=== PATIENT | male | born 1985 | race Caucasian/White ===

== ENCOUNTER 2020-05-15 16:23 | Emergency (ER) | payer OTHER, SELFPAY ==
[2020-05-15 17:14] VITALS: BP 141/91; PULSE 72; RESP 19; TEMP 37; O2SAT 100; BMI 21.7
[2020-05-15 17:28] VITALS: BP 141/91; PULSE 72; RESP 19; TEMP 37; O2SAT 100
--- NOTE | 2020-05-18 10:14 | HMH.EDUTC ---
[facility] [place] Impression: COVID-19 ruled out by laboratory testing Disposition: Home, Self-Care Condition on Discharge: Good Instructions: Preventing the Spread of Coronavirus Discharge Instructions Additional Instructions: Drink plenty of fluids. Take tylenol orfor pain or fever. Follow up with your regular doctor. GO TO THE ER FOR ANY WORSENING SYMPTOMS FOLLOW THE DIRECTIONS ON THE COVID-19 HAND OUT THAT WE GAVE YOU REGARDING SELF-ISOLATION UNTIL YOU KNOW YOUR COVID-19 RESULTS Referrals: PCP,No [Primary Care Provider] - Medical Decision Making - Medical Records Medical records reviewed: No: I reviewed the patient's medical records. - Yosef Inquiry Pt receiving controlled substance: No Vital Signs: 05/15/20 17:14 05/15/20 17:28 Temperature 98.6 F 98.6 F Temperature Source Oral Pulse Rate 72 Pulse Rate [Right Brachial] 72 Respiratory Rate 19 19 Blood Pressure 141/91 H Blood Pressure [Right Arm] 141/91 H Blood Pressure Mean [Right Arm] 107 Blood Pressure Source [Right Arm] Automatic Cuff Blood Pressure Position [Right Arm] Sitting 02 Sat by Pulse Oximetry 100 Oxygen Delivery Method Room [place] [facility] [place] General Stated complaint: covid test Time Seen by Provider: 05/15/20 17:15 Mode of Arrival: Ambulatory Source of Information: Patient Limitations: No Limitations Description of Symptoms (Recalled from Triage Doc. by RN): REQUESTING COVID TEST D/T EXPOSURE; DENIES SYMPTOMS HEENT Symptoms (Recalled from RN notes): No Resp Symptoms (Recalled from RN notes): No Skin Symptoms (Recalled from RN notes): No MS Symptoms (Recalled from RN notes): No Functional Status (Recalled from RN notes): WNL - History of Present Illness Provider Complaint: His grandfather tested + for covid-19 earlier today. His parents would like for him to be tested. They deny that the child has had any symptoms - Related Data Home Medications Medication Instructions Recorded Confirmed Buprenorphine HCl/Naloxone HCl 5.7 mg PO BID 01/20/18 06/24/18 [Zubsolv 5.7-1.4 mg Tablet Sl] Previous Rx's Medication Instructions Recorded cephALEXin [Keflex 500mg Cap] 500 mg PO TID #30 cap 06/24/18 predniSONE [Prednisone 20mg 20 mg PO BID #10 tab 06/24/18 Tab] Allergies Allergy/AdvReac Type Severity Reaction Status Date / Time penicillin G [PENICILLIN G] Allergy Mild Verified 06/24/18 21:39 - Worker's Comp Is this a Worker's Comp case?: No [facility] History - Hepatitis A Screen Drug use history?: No High risk sexual behaviors?: No History of sexually transmitted infection?: No Currently employed?: No Childcare worker?: No Do you have indoor plumbing?: Yes Do you have electricity?: Yes Attestation statement:: This patient has been screened for Hepatitis A risk factors. Medical History: Denies:: Diabetes Mellitus Type 1, Diabetes Mellitus Type 2, Internal Pacemaker, Lung Disease, Seizures Other Medical History: Reports: Other (suboxone use) Other Surgeries: No: Pacemaker - Social History Smoking Status: Never smoker Tobacco Type: smokeless tobacco # Packs/Day (cigarettes): 0 Alcohol Intake: never Substance Use Type: unknown Occupational Status: other ROS Obtained: Yes All systems reviewed & no additional complaints - Constitutional Constitutional: Reports system reviewed and no additional complaints, except as docu, Denies chills, Denies fever(s) - Eyes Eyes: Reports system reviewed and no additional complaints, except as docu, Denies eye discharge - ENT Ears, Nose, Mouth, and Throat: Reports system reviewed and no additional complaints, except as docu, Denies dizziness, Denies otalgia, Denies sore throat - Cardiovascular Cardiovascular: Denies chest pain - Respiratory Respiratory: No chest congestion, No cough Physical Exam - General General appearance: alert, in no apparent distress - Head Head exam: atraumatic, normocephalic, normal
== END 2020-05-15 17:30 | disposition home or self-care (01) ==
PROVIDERS: Emergency Provider Nurse Practitioner Family
DX: U07.1 COVID-19 (principal)
CPT/HCPCS: 99201; U0003

== ENCOUNTER 2020-05-23 17:17 | Emergency (ER) | payer OTHER, SELFPAY ==
[2020-05-23 17:29] VITALS: BP 132/84; PULSE 84; RESP 14; TEMP 36.9; O2SAT 96; BMI 23.7
--- NOTE | 2020-05-23 17:35 | HMH.EDUTC ---
[facility] [place]ression: COVID-19 Disposition: Home, Self-Care Condition on Discharge: Good Instructions: Preventing the Spread of Coronavirus Discharge Instructions Additional Instructions: Follow up with your primary care physician. GO TO THE ER FOR ANY WORSENING SYMPTOMS OR CONCERNS Prescriptions: Azithromycin [Z-Oscar 250mg Tab*] 250 mg PO UD DOSE PK #6 tab Transmission Status: [facility] Referrals: PCP,No [Primary Care Provider] - Time of Disposition: 17:39 Medical Decision Making - Medical Records Medical records reviewed: No: I reviewed the patient's medical records. - Yosef Inquiry Pt receiving controlled substance: No Vital Signs: 05/23/20 17:29 05/23/20 17:45 Temperature 98.4 F 98.4 F Temperature Source Oral Oral Pulse Rate 84 Pulse Rate [Radial] 84 Respiratory Rate 14 14 Blood Pressure 132/84 Blood Pressure [Right Arm] 132/84 Blood Pressure Mean [Right Arm] 100 Blood Pressure Source Automatic Cuff Blood Pressure Source [Right Arm] Automatic Cuff Blood Pressure Position Sitting Blood Pressure Position [Right Arm] Sitting 02 Sat by Pulse Oximetry 96 Oxygen Delivery Method Room Air Room Air Orders (Tests/Meds): ORDERS Category Date Time Status Covid-19 Nasal PCR Sendout Gaurav Routine Lab 05/23/20 17:20 Received [facility] [place] - General Stated complaint: wants COVID test Time Seen by Provider: 05/23/20 17:35 Mode of Arrival: Ambulatory Source of Information: Patient Limitations: No Limitations Description of Symptoms (Recalled from Triage Doc. by RN): Tested positive for COVID on 05/14/20. States his place of employment is requiring two negative tests before returning to work. Here for covid test. HEENT Symptoms (Recalled from RN notes): No Resp Symptoms (Recalled from RN notes): No Skin Symptoms (Recalled from RN notes): No MS Symptoms (Recalled from RN notes): No Functional Status (Recalled from RN notes): wnl - History of Present Illness Provider Complaint: He is here at the request of his employer to have a covid test. He has recently tested positive for covid. - Related Data Home Medications Medication Instructions Recorded Confirmed Buprenorphine HCl/Naloxone HCl 5.7 mg PO BID 01/20/18 06/24/18 [Zubsolv 5.7-1.4 mg Tablet Sl] Previous Rx's Medication Instructions Recorded cephALEXin [Keflex 500mg Cap] 500 mg PO TID #30 cap 06/24/18 predniSONE [Prednisone 20mg 20 mg PO BID #10 tab 06/24/18 Tab] Azithromycin [Z-Oscar 250mg Tab*] 250 mg PO UD DOSE PK #6 tab 05/23/20 Allergies Allergy/AdvReac Type Severity Reaction Status Date / Time penicillin G [PENICILLIN G] Allergy Mild Verified 06/24/18 21:39 - Worker's Comp Is this a Worker's Comp case?: No H History - Hepatitis A Screen Drug use history?: Yes High risk sexual behaviors?: No History of sexually transmitted infection?: No Currently employed?: No Childcare worker?: No Do you have indoor plumbing?: Yes Do you have electricity?: Yes Attestation statement:: This patient has been screened for Hepatitis A risk factors. I have reviewed the patient's past medical history: Yes Medical History: Denies:: Diabetes Mellitus Type 1, Diabetes Mellitus Type 2, Internal Pacemaker, Lung Disease, Seizures Other Medical History: Reports: Other (suboxone use) Other Surgeries: No: Pacemaker - Social History Smoking Status: Current every day smoker Tobacco Type: smokeless tobacco # Packs/Day (cigarettes): 0 Alcohol Intake: never Substance Use Type: unknown Occupational Status: employed ROS Obtained: Yes All systems reviewed & no additional complaints - Constitutional Constitutional: Reports system reviewed and no additional complaints, except as docu - Eyes Eyes: Reports system reviewed and no additional complaints, except as docu - ENT Ears, Nose, Mouth, and Throat: Reports system reviewed and no additional complaints, except a
[2020-05-23 17:45] VITALS: BP 132/84; PULSE 84; RESP 14; TEMP 36.9; O2SAT 96
[2020-05-24 11:39] LABS: Adenovirus,PCR Not Detected (NotDetected); Bordetella Pertussis Not Detected (NotDetected); Chlamydophila Pneumoniae, PCR Not Detected (NotDetected); Coronavirus 19, PCR Not Detected (NotDetected); Coronavirus 229E Not Detected (NotDetected); Coronavirus NL63 Not Detected (NotDetected); Coronavirus OC43 Not Detected (NotDetected); Coronovirus HKU1,PCR Not Detected (NotDetected); Human Metapneumovirus Not Detected (NotDetected); Influenza A, PCR Not Detected (NotDetected); Influenza AH1, 2009 Not Detected (NotDetected); Influenza AH1, PCR Not Detected (NotDetected); Influenza AH3,PCR Not Detected (NotDetected); Influenza B, PCR Not Detected (NotDetected); Mycoplasma Pneumoniae, PCR Not Detected (NotDetected); Parainfluenza 1, PCR Not Detected (NotDetected); Parainfluenza 2, PCR Not Detected (NotDetected); Parainfluenza 3, PCR Not Detected (NotDetected); Parainfluenza 4, PCR Not Detected (NotDetected); Respiratory Syncytial Virus Not Detected (NotDetected); Rhinovirus/Enterovirus Not Detected (NotDetected)
== END 2020-05-23 17:46 | disposition home or self-care (01) ==
PROVIDERS: Emergency Provider Nurse Practitioner Family
DX: Z20.828 Contact with and (suspected) exposure to other viral communicable diseases (principal); F17.290 Nicotine dependence, other tobacco product, uncomplicated
CPT/HCPCS: 87581; 87633; 87798; 99201; U0003; U0004

== ENCOUNTER 2020-05-27 14:41 | Emergency (ER) | payer OTHER, SELFPAY ==
--- NOTE | 2020-05-27 15:19 | HMH.EDUTC ---
[facility] [place] Clinical Impression: COVID-19 Disposition: Home, Self-Care Condition on Discharge: Good Instructions: Preventing the Spread of Coronavirus Discharge Instructions Referrals: PCP,No [Primary Care Provider] - Time of Disposition: 15:23 Medical Decision Making - Medical Records Medical records reviewed: Yes: I reviewed the patient's medical records. - Yosef Inquiry Pt receiving controlled substance: No Orders (Tests/Meds): ORDERS Category Date Time Status Covid-19 Nasal PCR ([facility]) Routine Lab 05/27/20 15:00 Received [facility] [place] HPI - General Stated complaint: wants 3rd covid test Time Seen by Provider: 05/27/20 15:19 - History of Present Illness Provider Complaint: Patient tested positive for COVID19 on 05/14/20. He needs a 2nd negative test to return to work. Had his first negative test 05/23/20. Onset (ago): day(s) (12) Relieving factors: none Exacerbating factors: none - Related Data Home Medications Medication Instructions Recorded Confirmed Buprenorphine HCl/Naloxone HCl 5.7 mg PO BID 01/20/18 06/24/18 [Zubsolv 5.7-1.4 mg Tablet Sl] Previous Rx's Medication Instructions Recorded cephALEXin [Keflex 500mg Cap] 500 mg PO TID #30 cap 06/24/18 predniSONE [Prednisone 20mg 20 mg PO BID #10 tab 06/24/18 Tab] Azithromycin [Z-Oscar 250mg Tab*] 250 mg PO UD DOSE PK #6 tab 05/23/20 Allergies Allergy/AdvReac Type Severity Reaction Status Date / Time penicillin G [PENICILLIN G] Allergy Mild Verified 06/24/18 21:39 [facility] History - Hepatitis A Screen Attestation statement:: This patient has been screened for Hepatitis A risk factors. I have reviewed the patient's past medical history: Yes Medical History: Denies:: Diabetes Mellitus Type 1, Diabetes Mellitus Type 2, Internal Pacemaker, Lung Disease, Seizures Other Medical History: Reports: Other (suboxone use) Other Surgeries: No: Pacemaker - Social History Smoking Status: Current every day smoker Tobacco Type: smokeless tobacco # Packs/Day (cigarettes): 0 Alcohol Intake: never Substance Use Type: unknown Occupational Status: employed ROS Obtained: Yes All systems reviewed & no additional complaints Physical Exam - General General appearance: alert, in no apparent distress - Head Head exam: atraumatic, normocephalic, normal inspection - Eye Eye exam: Present: normal appearance, PERRL, EOMI - ENT ENT exam: Present: normal exam, normal oropharynx, mucous membranes moist, TM's normal bilaterally, normal external ear exam - Neck Neck exam: Present: normal inspection, full ROM, trachea midline. Absent: meningismus, lymphadenopathy - Chest Chest inspection: Present: normal inspection, symmetric chest wall rise. Absent: tenderness - Respiratory Respiratory exam: Present: normal lung sounds bilaterally. Absent: respiratory distress - Cardiovascular Cardiovascular exam: Present: regular rate, normal rhythm. Absent: JVD - Abdominal Exam Abdominal exam: Present: soft, normal bowel sounds. Absent: distention, tenderness, guarding - Extremities Exam Extremities exam: Present: normal inspection, full ROM, normal capillary refill. Absent: calf tenderness - Back Exam Back exam: Present: normal inspection. Absent: tenderness - Neurological Exam Neurological exam: Present: alert, oriented X3 - Psychiatric Psychiatric exam: Present: normal affect, normal mood - Skin Skin exam: Present: warm, dry, intact, normal color - Lymphatic Lymphatic Findings: no adenopathy
[2020-05-27 15:23] VITALS: BP 149/81; PULSE 87; RESP 18; TEMP 37; O2SAT 99
[2020-05-27 15:25] VITALS: BP 149/81; PULSE 87; RESP 18; TEMP 37; O2SAT 99; BMI 23.7
--- NOTE | 2020-05-27 20:08 | PC.NURSE ---
Pt notified of positive covid test at this time
== END 2020-05-27 15:25 | disposition home or self-care (01) ==
PROVIDERS: Emergency Provider Physician Assistant
DX: U07.1 COVID-19 (principal)
CPT/HCPCS: 99201; U0003

== ENCOUNTER 2020-06-03 19:06 | Emergency (ER) | payer OTHER, SELFPAY ==
[2020-06-03 19:18] VITALS: BP 145/81; PULSE 84; RESP 17; TEMP 37; O2SAT 98; BMI 23.7
--- NOTE | 2020-06-03 19:31 | HMH.EDUTC ---
[facility] [place] Clinical Impression: COVID-19 Disposition: Home, Self-Care Condition on Discharge: Good Instructions: Preventing the Spread of Coronavirus Discharge Instructions Additional Instructions: Drink plenty of fluids. Take tylenol for pain or fever. Follow up with your regular doctor. GO TO THE ER FOR ANY WORSENING SYMPTOMS Referrals: PCP,No [Primary Care Provider] - Time of Disposition: 19:34 Medical Decision Making - Medical Records Medical records reviewed: No: I reviewed the patient's medical records. - Yosef Inquiry Pt receiving controlled substance: No Vital Signs: 06/03/20 19:18 06/03/20 19:44 Temperature 98.6 F 98.6 F Temperature Source Oral Oral Pulse Rate 84 Pulse Rate [Radial] 84 Respiratory Rate 17 17 Blood Pressure 145/81 H Blood Pressure [Right Arm] 145/81 H Blood Pressure Mean [Right Arm] 102 Blood Pressure Source Automatic Cuff Blood Pressure Source [Right Arm] Automatic Cuff Blood Pressure Position Sitting Blood Pressure Position [Right Arm] Sitting 02 Sat by Pulse Oximetry 98 Oxygen Delivery Method Room Air Room Air Orders (Tests/Meds): ORDERS Category Date Time Status Covid-19 Nasal PCR ([facility]) Routine Lab 06/03/20 19:10 Received [facility] [place] HPI - General Stated complaint: covid test Time Seen by Provider: 06/03/20 19:31 Mode of Arrival: Ambulatory Source of Information: Patient Limitations: No Limitations Description of Symptoms (Recalled from Triage Doc. by RN): covid test HEENT Symptoms (Recalled from RN notes): No Resp Symptoms (Recalled from RN notes): No Skin Symptoms (Recalled from RN notes): No MS Symptoms (Recalled from RN notes): No Functional Status (Recalled from RN notes): wnl - History of Present Illness Provider Complaint: He is here for a covid test. He needs a negative test to be allowed to go back to work. - Related Data Home Medications Medication Instructions Recorded Confirmed Buprenorphine HCl/Naloxone HCl 5.7 mg PO BID 01/20/18 06/24/18 [Zubsolv 5.7-1.4 mg Tablet Sl] Previous Rx's Medication Instructions Recorded cephALEXin [Keflex 500mg Cap] 500 mg PO TID #30 cap 06/24/18 predniSONE [Prednisone 20mg 20 mg PO BID #10 tab 06/24/18 Tab] Azithromycin [Z-Oscar 250mg Tab*] 250 mg PO UD DOSE PK #6 tab 05/23/20 Allergies Allergy/AdvReac Type Severity Reaction Status Date / Time penicillin G [PENICILLIN G] Allergy Mild Verified 06/24/18 21:39 - Worker's Comp Is this a Worker's Comp case?: No [facility] History - Hepatitis A Screen Drug use history?: No High risk sexual behaviors?: No History of sexually transmitted infection?: No Currently employed?: No Childcare worker?: No Do you have indoor plumbing?: Yes Do you have electricity?: Yes Attestation statement:: This patient has been screened for Hepatitis A risk factors. I have reviewed the patient's past medical history: Yes Medical History: Denies:: Diabetes Mellitus Type 1, Diabetes Mellitus Type 2, Internal Pacemaker, Lung Disease, Seizures Other Medical History: Reports: Other (suboxone use) Other Surgeries: No: Pacemaker - Social History Smoking Status: Current every day smoker Tobacco Type: smokeless tobacco # Packs/Day (cigarettes): 0 Alcohol Intake: never Substance Use Type: unknown Occupational Status: employed Housing: house ROS Obtained: Yes All systems reviewed & no additional complaints - Constitutional Constitutional: Reports system reviewed and no additional complaints, except as docu - Eyes Eyes: Reports system reviewed and no additional complaints, except as docu - ENT Ears, Nose, Mouth, and Throat: Reports system reviewed and no additional complaints, except as docu - Cardiovascular Cardiovascular: Reports system reviewed and no additional complaints, except as docu - Respiratory Respiratory: Yes system reviewed and no additional complaints, except as docu - Gastrointestinal Gastrointestin
[2020-06-03 19:44] VITALS: BP 145/81; PULSE 84; RESP 17; TEMP 37; O2SAT 98
== END 2020-06-03 19:45 | disposition home or self-care (01) ==
PROVIDERS: Emergency Provider Nurse Practitioner Family
DX: U07.1 COVID-19 (principal); F17.290 Nicotine dependence, other tobacco product, uncomplicated; Z88.0 Allergy status to penicillin
CPT/HCPCS: 99201; U0003

== ENCOUNTER 2022-05-20 16:22 | Emergency (ER) | payer BC, SELFPAY ==
[2022-05-20 16:32] VITALS: BP 143/89; PULSE 115; RESP 19; TEMP 36.7; O2SAT 99; BMI 24.6
--- NOTE | 2022-05-20 16:41 | EXP.UTC ---
Discharge Plan Disposition Patient Disposition: Home, Self-Care Condition: Good Prescriptions Prescriptions: New cephalexin 500 mg tablet 500 mg PO QID 7 Days Qty: 28 0RF No Action buprenorphine-naloxone [Zubsolv] 1 EACH tablet, sublingual 5.7 mg PO BID prednisone 20 MG tablet 20 mg PO BID Qty: 10 0RF cephalexin [Keflex] 500 MG capsule 500 mg PO TID Qty: 30 0RF azithromycin 250 MG tablet 250 mg PO UD DOSE PK Qty: 6 0RF Rx Instructions: Take two (2) tablets today, then one (1) tablet days #2 thru #5 Referrals Follow up/Referrals: Provider,Referral, MD [Primary Care Provider] - See instructions Activity Restrictions/Add. Instructions Additional Instructions/Restrictions: *Start antibiotic(s) immediately and be sure to take as ordered for the FULL length of time although you may be feeling better or start to see improvement in the next 24-48 hours *Monitor closely. Outlined redness so that you can monitor easier. Follow up immediately for new or worsening symptoms including but not limited to redness, swelling, streaking from site fever or chills. *Monitor Temp. Tylenol every 4 hours as needed and ibuprofen every 6 hours as needed (as long as your primary care doctor has told you that it is ok to take both. For fever, aches, pain. ER if no less that 101 despite Tylenol and ibuprofen ?Follow up with your family doctor/primary care physician in the next 48-72 hours if no improvement Outpatient order for venous doppler was faxed they will call you with at time Clinical Impressions Clinical Impression: Cellulitis Stand Alone Forms Stand Alone Forms: Work/School Release Instructions Patient Instructions: Cellulitis Discharge ED Provider: Louann Wilson [facility] General Stated complaint: RT leg red and swelling Time Seen by Provider: 05/20/22 16:42 Description of Symptoms (Recalled from Triage Doc. by RN): PT STATES THAT HE WAS WORKING YESTERDAY AND WAS ON HIS FEET ALL DAY WHEN HE NOTICED HIS RT CALF WAS SWOLLEN AND STARTED TO SWELL AROUND HIS ANKLE ALSO LAST NIGHT. NO REDNESS NOTED. HEENT Symptoms (Recalled from RN notes): No Resp Symptoms (Recalled from RN notes): No Skin Symptoms (Recalled from RN notes): Yes MS Symptoms (Recalled from RN notes): Yes Functional Status (Recalled from RN notes): WNL History of Present Illness Provider Complaint: Patient states that he has a history of cellulitis State that he has been working alot here lately and been on his feet more than normal States that last night he noticed his right lower leg looked a little swollen and red States that when he got home the swelling has went down but still looking red like he had when he had cellulitis Related Data Home Medications Medication Instructions Recorded Confirmed buprenorphine 5.7 mg-naloxone 1.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.7 mg PO BID addiction 01/20/18 06/24/18 mg sublingual tablet (Zubsolv) Previous Rx's Medication Instructions Recorded cephalexin 500 mg capsule (Keflex) 500 mg PO TID #30 caps 06/24/18 prednisone 20 mg tablet 20 mg PO BID #10 tabs 06/24/18 azithromycin 250 mg tablet 250 mg PO UD DOSE PK #6 tabs 05/23/20 cephalexin 500 mg tablet 500 mg PO QID 7 days #28 tabs 05/20/22 Allergies Allergy/AdvReac Type Severity Reaction Status Date / Time penicillin G [PENICILLIN G] Allergy Mild Verified 06/24/18 21:39 Worker's Comp Is this a Worker's Comp case?: No PFSH PFSH Social History Smoking Status: Current every day smoker tobacco type: smokeless tobacco second hand exposure: Yes alcohol intake: never substance use type: unknown current occupational status: employed Travel in the last 8 weeks: None housing: house caffeine: Yes ROS Obtained: Yes All systems reviewed & no additional complaints except as documented and Yes Systems reviewed as appropriate & no additional complaints except as documented Constitutional Constitutional: Reports system reviewed and no additional compl
[2022-05-20 16:55] VITALS: BP 143/89; PULSE 115; RESP 19; TEMP 36.7; O2SAT 99
== END 2022-05-20 17:10 | disposition home or self-care (01) ==
PROVIDERS: Emergency Provider Nurse Practitioner
DX: L03.115 Cellulitis of right lower limb (principal); F17.290 Nicotine dependence, other tobacco product, uncomplicated; Z79.52 Long term (current) use of systemic steroids; Z79.899 Other long term (current) drug therapy; Z88.0 Allergy status to penicillin
CPT/HCPCS: 99213; G0463

== ENCOUNTER → 2022-05-21 11:33 | Outpatient (CLI) | payer BC, SELFPAY ==
--- NOTE | 2022-05-21 11:37 | CA_ITS ---
FINAL REPORT TECHNIQUE: Multiple transverse and longitudinal images were performed of the femoral-popliteal deep venous system with augmentation and compression maneuvers. CLINICAL HISTORY: RLE pain and edema x several days. States he is on his feet for long periods at work. He started wearing new boots that hurt his feet so he switched back to his old boots and the leg pain began. He noticed it swelling and red yesterday. States [facility] doctor started him on antibiotics. FINDINGS: Right lower extremity duplex ultrasound demonstrates normal flow in the deep venous system. There is no abnormal echogenicity to suggest thrombus. There is normal compression and augmentation. IMPRESSION: No evidence of DVT. Reviewed, Interpreted and Dictated by Joce Carnes III, MD Transcribed by Rufus Carolina Authenticated and [facility]
== END ==
PROVIDERS: Visit Provider Nurse Practitioner
DX: M79.661 Pain in right lower leg (principal); R60.0 Localized edema
CPT/HCPCS: 93971